=== PATIENT | male | born 1995 | race Caucasian/White ===

== ENCOUNTER 2018-04-25 20:35 | Emergency (ER) | payer SELFPAY ==
[~2018-04-25] VITALS: Ht 167.6 cm; Wt 65.8 kg
[2018-04-25 20:41] VITALS: BP 166/51
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
[2018-04-25 21:25] VITALS: BP 149/62
--- NOTE | 2018-04-25 21:25 | NUR ---
Patient discharged with v/s stable. Written and verbal after care instructions given and explained. Patient verbalized understanding. Police with in custody. All questions addressed prior to discharge. Advised to follow up with PMD.
== END 2018-04-25 21:25 ==
LOC: MED 20:35
DX: Z04.1 Encounter for examination and observation following transport accident (principal); F10.10 Alcohol abuse, uncomplicated
CPT/HCPCS: 99283